=== PATIENT | male | born 2000 | race Caucasian/White ===

== ENCOUNTER 2022-11-30 02:55 | Emergency (ER) | payer BC, SELFPAY ==
--- NOTE | ~2022-11-30 | CT_ITS ---
Non-contrast Head CT History: Headache Technique: Axial non-contrast imaging of the brain was performed. Dose reduction technique was used on this scan by utilizing automated exposure control and iterative reconstruction technique. The dose -length product (DLP) was 605.33 mGy-cm. Findings: There is no evidence of intracranial hemorrhage, mass lesion, or acute infarct. Brain par enchyma appears normal. The ventricles and subarachnoid spaces are normal in size. The calvarium ap pears normal. The visualized paranasal sinuses and mastoid air cells are clear. Impression: No significant abnormality seen. Reviewed, dictated and finalized at location . Impression: No significant abnormality seen.
[2022-11-30 02:58] VITALS: BP 154/92; PULSE 63; RESP 14; TEMP 36.4; O2SAT 99
--- NOTE | 2022-11-30 07:14 | ED.GENADULT ---
HPI - General Adult General Chief complaint: Headache Stated complaint: SINHA Time Seen by Provider: 11/30/22 05:43 History of Present Illness HPI narrative: 22-year-old male presented to the emergency department for evaluation of worsening headache. Patient states over the course of the last few months he has had increased frequency and headaches. Patient states typically the headaches resolved with Advil. Patient states over the course of the last 2 weeks he has had a more persistent headache. Patient did follow-up with his primary care physician and was started on a prednisone taper. Patient reports he woke up this morning with a headache, took his prednisone and states the headache feels worse. Patient denies any associated nausea and vomiting but does have increased generalized weakness and does report light sensitivity. Patient has followed up with her primary care physician but has not had follow-up with neurology for these headaches. Patient reports when he was younger, age 6, he did have a concussion but denies any recent injury. Patient denies any recent fevers. Related Data Allergies Allergy/AdvReac Type Severity Reaction Status Date / Time Penicillins Allergy Hives Verified 11/30/22 04:41 Review of Systems Review of Systems: All systems reviewed & are unremarkable except as noted in HPI and below Exam Narrative: APPEARANCE: Well appearing, no pain, no distress, well-nourished. HEAD: normocephalic, atraumatic. EYES: PERRLA/EOMI, conjunctivae clear. NOSE: Normal no drainage NECK: Supple. No adenopathy, no masses. RESPIRATORY: Airway patent, respirations nonlabored. Clear to auscultation bilaterally, no rales, rhonchi, wheezing. CARDIOVASCULAR: Regular rate and rhythm without murmurs rubs or gallops. ABDOMINAL: Soft, nontender, nondistended, normal bowel sounds MUSCULOSKELETAL: Moves all extremities. Strength/ROM intact, No edema, No calf tenderness. NEURO: Alert. Cranial nerves II through XII intact. Grossly intact SKIN: Warm, dry. Normal Color Course Course Emergency Course: 22-year-old male present emergency department for evaluation of persistent headache. Head CT is ordered to evaluate for intracranial abnormalities due to the escalating nature of his headaches. Patient was also provided medications for pain control including Toradol, Benadryl, Compazine and IV fluids. On reevaluation patient states his headache is completely resolved and has no complaints. CT head was negative. Patient was educated on treatment for his migraines at home and on recommendation of close follow-up with his primary care physician. All questions concerns were addressed. Vital Signs Vital signs: Vital Signs Temperature 97.6 F 11/30/22 02:58 Pulse Rate 63 11/30/22 02:58 Respiratory Rate 14 11/30/22 02:58 Blood Pressure 154/92 H 11/30/22 02:58 Pulse Oximetry 99 11/30/22 02:58 Oxygen Delivery Room Air 11/30/22 02:58 Temperature 97.6 F 11/30/22 02:58 Pulse Rate 63 11/30/22 02:58 Respiratory Rate 14 11/30/22 02:58 Blood Pressure 154/92 H 11/30/22 02:58 Pulse Oximetry 99 11/30/22 02:58 Oxygen Delivery Room Air 11/30/22 02:58 Medical Decision Making Differential Diagnosis Differential Diagnosis: Headache, migraine, intracranial abnormality Vital Signs Vital Signs: Vital Signs Temperature 97.6 F 11/30/22 02:58 Pulse Rate 63 11/30/22 02:58 Respiratory Rate 14 11/30/22 02:58 Blood Pressure 154/92 H 11/30/22 02:58 Pulse Oximetry 99 11/30/22 02:58 Oxygen Delivery Room Air 11/30/22 02:58 Temperature 97.6 F 11/30/22 02:58 Pulse Rate 63 11/30/22 02:58 Respiratory Rate 14 11/30/22 02:58 Blood Pressure 154/92 H 11/30/22 02:58 Pulse Oximetry 99 11/30/22 02:58 Oxygen Delivery Room Air 11/30/22 02:58 Imaging Data Radiologist's impression: Impressions Head CT 11/30/22 08:00 Impression: No significant abnormality seen.
[2022-11-30] MEDS: KETOROLAC 15 MG/ML VIAL (*BKC) IV PUSH (07:32)
[2022-11-30] MEDS: PROCHLORPERAZINE EDISYLATE 10 MG/2 ML VIAL IV PUSH (07:32)
[2022-11-30] MEDS: diphenhydrAMINE HCl INJ 50 MG/ML VIAL 25 MG IV PUSH (07:32)
[2022-11-30] MEDS: SODIUM CHLORIDE 0.9% IV 1,000 ML 999 ML IV CONT (07:32)
== END 2022-11-30 09:16 | disposition home or self-care (01) ==
PROVIDERS: Emergency Provider Emergency Medicine; PCP Family Medicine
DX: R51.9 Headache, unspecified (principal)
CPT/HCPCS: 70450; 96361; 96374; 96375; 99284; J0780; J1200; J1885; J7030

== ENCOUNTER 2023-05-23 07:26 | Outpatient (CLI) | payer BC, SELFPAY ==
--- NOTE | ~2023-05-23 | MR_ITS ---
EXAMINATION: MR brain/brain stem wo con DATE: 05/23/2023 08:01 INDICATION: Headache. Traumatic brain injury. TECHNIQUE: Magnetic resonance imaging (MRI) of the brain and brainstem was performed without intraven ous contrast. COMPARISON: Head CT 11/30/2022 FINDINGS: There is no intracranial hemorrhage, acute infarction, or abnormal intracranial mass lesion . The ventricles are normal in size. There is mild mucosal thickening in the paranasal sinuses. The o rbits are normal. The mastoid air cells are normal. IMPRESSION: 1. Normal brain. Reviewed, dictated and finalized at location A. IMPRESSION: 1. Normal brain.
== END 2023-05-23 07:27 ==
LOC: MICIMG 07:28
PROVIDERS: PCP Family Medicine; Visit Provider Nurse Practitioner Family
DX: R51.9 Headache, unspecified (principal); Z87.820 Personal history of traumatic brain injury
CPT/HCPCS: 70551